=== PATIENT | male | born 2005 | race Two or more races ===

== ENCOUNTER 2025-03-14 16:36 | Emergency (ER) | payer OTHER ==
[~2025-03-14] VITALS: Ht 175.3 cm; Wt 74.8 kg
[2025-03-14 17:07] VITALS: BP 151/88; TEMP 98
[2025-03-14] MEDS ORDERED: LIDO30AD10 TP (17:24)
[2025-03-14] MEDS ORDERED: IBUP-76 PO (17:24)
[2025-03-14] MEDS ORDERED: CYCL10TA9 PO (17:24)
[2025-03-14 18:01] VITALS: O2SAT 97
== END 2025-03-14 18:01 | disposition home or self-care (01) ==
LOC: ER 16:52
DX: M54.50 Low back pain, unspecified (principal); Z79.899 Other long term (current) drug therapy